=== PATIENT | female | born 1930 | race Caucasian/White ===

== ENCOUNTER 2016-10-01 10:04 | Outpatient (CLI) | payer MEDICARE | END 2016-10-01 10:05 | disposition home or self-care (01) | DX: I10 Essential (primary) hypertension (principal); Z79.899 Other long term (current) drug therapy; M19.90 Unspecified osteoarthritis, unspecified site; M85.80 Other specified disorders of bone density and structure, unspecified site; E78.5 Hyperlipidemia, unspecified; D75.89 Other specified diseases of blood and blood-forming organs; C80.1 Malignant (primary) neoplasm, unspecified ==

== ENCOUNTER 2021-10-27 03:16 | Outpatient (CLI) | payer MEDICARE | END 2021-10-27 03:17 | disposition EMS.NT | LOC: EMS 03:16 | DX: R07.89 Other chest pain (principal) ==